=== PATIENT | female | born 1965 | race Two or more races ===

== ENCOUNTER 2024-05-13 08:28 | Inpatient (IN) | payer MEDICAID, SELFPAY ==
[2024-05-13] VITALS (11 sets, daily range): BP systolic 111–152; BP diastolic 67–78; PULSE 89–135; RESP 13–98; TEMP 36.1–38.1; O2SAT 95–99; BMI 23.6
--- NOTE | 2024-05-13 | XR_ITS ---
Examinations: MRI Brain without intravenous contrast. MRA brain without intravenous contrast. MRA carotids without intravenous contrast 3-D vascular reconstructions Date and time of exam: May 13, 2024 1545 hrs. Indications: Stroke alert, onset focal neurologic deficit, left facial numbness left-sided body weakness beginning 12:00 AM this morning Technique: Multiple axial and sagittal images of the brain have been obtained MRA brain carotid images without contrast obtained, including 3-D postprocessing, vascular maximum intensity projection images Findings: Sell[place] is not enlarged. The optic chiasm and infundibular stalk are not remarkable. Prepontine and interpeduncular cisterns are not enlarged. No localized enlargement of the medulla or rose. Fourth ventricle and cerebellar tonsils normal in position. Subacute hemorrhage is not seen. Fourth ventricle is midline. Mass in the cerebellopontine angle region is not evident. 7th and 8th nerve complexes exhibits symmetry. Globes are symmetrical with no retro-orbital mass. Increased white matter signal evident in the right thalamus Diffusion-weighted images demonstrate 9 mm focus restricted diffusion in the right thalamus Mass-effect upon the ventricular system is not identified. MRA carotid images no carotid significant stenoses. MRA brain images 90% stenosis left posterior cerebral artery P2 segment Impression: 9 mm acute right thalamic infarct 90% stenosis left posterior cerebral artery P2 segment
--- NOTE | 2024-05-13 08:44 | XR_ITS ---
Examination: CT brain head without contrast. 2-D sagittal coronal reconstructions Date and time of exam:May 13, 2024 0849 hrs. Indications: Stroke alert, onset focal neurologic deficit beginning midnight, left facial numbness left body weakness CTDI: vol (mGy):47.6 DLP: (mGycm):886 Technique: Multiple CT axial sections of the brain have been obtained, 5 mm slice thickness. Contrast has not been administered. 2-D sagittal, coronal reconstructions have been obtained Low dose protocols were performed. One or more of the following dose reduction techniques were used; automated exposure control, adjustment of the mA and/or KV according to patient size, use of iterative reconstruction technique. Findings: No significant ventricular enlargement. Small old infarct right caudate nucleus Intra-axial or extra-axial hemorrhage density is not seen. No mass effect or midline shift Basal cisterns are not remarkable. Fourth ventricle is midline. Cranial vault intact. Impression: Negative for acute hemorrhage, mass effect or midline shift
--- NOTE | 2024-05-13 08:44 | EKG_ITS ---
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
--- NOTE | 2024-05-13 08:44 | XR_ITS ---
Examination: CTA carotids with intravenous contrast CTA brain, head with intravenous contrast. 2-D sagittal, coronal reconstructions. 3-D reconstructions. Exam date and time: May 13, 2024 0854 hrs. Indications: Onset left-sided facial weakness and body weakness beginning midnight, stroke alert, onset focal neurologic deficit today CTDI: vol (mGy) 15.6 DLP: (mGycm) 404 Technique: Multiple CTA axial brain, head carotid images post intravenous contrast injection 75 cc, Isovue-370. 2-D sagittal, coronal reconstructions. 3-D reconstructions, 3-D post processing including vascular maximum intensity projection images. Low dose protocols were performed. One or more of the following dose reduction techniques were used; automated exposure control, adjustment of the mA and/or KV according to patient size, use of iterative reconstruction technique. Findings: No significant common carotid carotid bifurcation or internal carotid artery stenoses Dominant left vertebral artery with no critical stenoses Intracranial vertebral arteries basilar artery posterior cerebral branches No large vessel occlusions M1 segments middle cerebral arteries middle cerebral artery trifurcation vessels anterior cerebral arteries fill with no thrombus or occlusions Impression: No significant neck arterial stenoses No cerebral large vessel arterial occlusions or thrombus
--- NOTE | 2024-05-13 08:45 | PC.NURSE ---
pt taken to CT.
--- NOTE | 2024-05-13 09:00 | PC.NURSE ---
pt from home with c/o left sided weakness. per pt symptoms started at midnight, states symptoms started with a cramp in the left leg that did not go away, then began to feel weakness in the left arm and leg along with numbness to the left face. pt without further complaints at this time. orders received and initiated. call light is within reach. at bedside. plan of care ongoing.
[2024-05-13 09:03] LABS: Basophils % (Auto) 0 % (0-2.5); Eosinophils # (Auto) 0.1 Thou/mm3 (0.0-0.5); Eosinophils % (Auto) 1 % (0-10); Hematocrit 45.4 % (36.0-46.0); Hemoglobin 15.3 g/dL (12.0-16.0); Immature Granulocytes % (Auto) 1 % (0-0); Immature Granulocytes Auto 0.14 Thou/mm3 (0.00-0.00); Lymphocytes # (Auto) 1.8 Thou/mm3 (1.0-4.8); Lymphocytes % (Auto) 15 % (10-50); Mean Corpuscular HGB Conc 33.7 g/dl (31.0-37.0); Mean Corpuscular Hemoglobin 27.1 pg (25.0-35.0); Mean Corpuscular Volume 80 fL (80-100); Monocytes # (Auto) 0.7 Thou/mm3 (0.0-0.8); Monocytes % (Auto) 5 % (0-12); Neutrophils # (Auto) 9.8 Thou/mm3 (1.8-7.7); Neutrophils % (Auto) 78 % (37-80); Nucleated Red Blood Cell % 0 /100 WBC (0); Platelet Count 531 Thou/mm3 (140-440); RDW Standard Deviation 36.5 fL (36.4-46.3); Red Blood Count 5.65 Miln/mm3 (4.00-5.20); White Blood Count 12.5 Thou/mm3 (3.6-11.0)
[2024-05-13 09:28] LABS: HCG Titer if Positive Negative
[2024-05-13 09:34] LABS: Alanine Aminotransferase 12 U/L (10-49); Albumin, Serum 4.8 gm/dL (3.5-5.0); Albumin/Globulin Ratio 1.6 (1.2-2.2); Alcohol, Blood Medical < 3.0 mg/dL (0-10.0); Alkaline Phosphatase 68 U/L (46-116); Anion Gap 9 (7-16); Aspartate Amino Transferase < 8 U/L (0-34); BUN/Creatinine Ratio 27 Ratio (12-20); Bilirubin,Total 0.7 mg/dL (0.3-1.2); Blood Urea Nitrogen 16 mg/dL (9-23); Calcium 9.7 mg/dL (8.3-10.6); Calcium (Corrected) 9.7 mg/dL (8.5-10.1); Chloride 98 mMol/L (98-107); Creatinine (Component) 0.6 mg/dL (0.6-1.3); Estimated Creatinine Clearance 88.3 mL/min (>60); Glucose 323 mg/dL (74-106); Magnesium 1.8 mg/dL (1.6-2.6); Osmolality,Calculated 281 (275-295); Sodium 134 mMol/L (136-145); Total Protein 7.8 gm/dL (5.7-8.2); Troponin I < 0.002 ng/mL (0.0-0.045); eGFR > 60 See Note
--- NOTE | 2024-05-13 09:34 | PD.TNEURO ---
Tele Neuro Consultation Consultation Date 05/13/24 Most Recent Vital Signs Last Vital Signs Temp 97.9 F 05/13/24 08:42 Pulse 110 H 05/13/24 09:15 Resp 19 05/13/24 09:02 BP 152/67 H 05/13/24 08:42 Pulse Ox 99 05/13/24 08:42 O2 Del Method Room Air 05/13/24 08:42 Consultation Narrative [facility] Tele[facility]rology [facility] Patient Name: Sayda Lemons Date of : 1965 Identification Number: Date of Service: 05/13/2024 08:44:37 Diagnosis: ? I63.89 - Cerebrovascular accident (CVA) due to other mechanism ([facility]) Impression: ? Pt with a h/o DM presents with left sided weakness. NIHSS =2. Righ hemispheric stroke suspected. Out of the thrombolytic window and no LVO on imaging reivew. Recommend admission, TTE, telemetry, MRI brain w/o, dual antiplatelets as outlined below. Fasting lipids. PT/OT/Speech. Our recommendations are outlined below. Recommendations: ? Stroke/Telemetry Floor ? Neuro Checks ? Bedside Swallow Eval ? DVT Prophylaxis ? Euglycemia and Avoid Hyperthermia (PRN Acetaminophen) ? Bolus with Clopidogrel 300 mg bolus x1 and initiate dual antiplatelet therapy with Aspirin 81 mg daily and Clopidogrel 75 mg daily ? Antihypertensives PRN if Blood pressure is greater than 220/120 or there is a concern for End organ damage/contraindications for permissive HTN. If blood pressure is greater than 220/120 give labetalol PO or IV or Vasotec IV with a goal of 15% reduction in BP during the first 24 hours. Sign Out: ? Discussed with Emergency Department Provider Advanced Imaging: CTA Head and Neck Completed. LVO:No Patient in not a candidate for HUNTER Metrics: Last Known Well: 05/13/2024 00:00:00 Dispatch Time: 05/13/2024 08:44:37 Arrival Time: 05/13/2024 08:28:00 Initial Response Time: 05/13/2024 08:52:16 Symptoms: left sided weakness. Initial patient interaction: 05/13/2024 09:13:22 NIHSS Assessment Completed: 05/13/2024 09:22:10 Patient is not a candidate for Thrombolytic. Thrombolytic Medical Decision: 05/13/2024 09:22:20 Patient was not deemed candidate for Thrombolytic because of following reasons: LKW outside 4.[address] head showed no acute hemorrhage or acute core infarct. I personally Reviewed the CT Head and it Showed Primary Provider Notified of Diagnostic Impression and Management Plan on: 05/13/2024 09:33:28 History of Present Illness: Patient is a 59 year old Female. Patient was brought by private transportation with symptoms of left sided weakness. The patient has a h/o DM and presents for left sided weakness. She relates left arm and leg weakness noted onset around midnight and this persists. She had cramping of the left leg from midnight - 4 a.m. She previously has had cramps but they did not involve weakness like this. She denies headaches. Denies vision or speech changes. She noted some left facial numbness as well. Past Medical History: ? Diabetes Mellitus ? There is no history of Hypertension ? There is no history of Hyperlipidemia ? There is no history of Atrial Fibrillation ? There is no history of Coronary Artery Disease ? There is no history of Stroke Medications: No Anticoagulant use No Antiplatelet use Reviewed EMR for current medications Allergies: Reviewed Social History: Smoking: No Family History: There is no family history of premature cerebrovascular disease pertinent to this consultation ROS : 14 Points Review of Systems was performed and was negative except mentioned in HPI. Past Surgical History: There Is No Surgical History Contributory To Today?s Visit Examination: BP(135/69), Pulse(113), Blood Glucose(320) 1A: Level of Consciousness - Alert; keenly responsive + 0 1B: Ask Month and Age - Both Questions Right + 0 1C: Blink Eyes & Squeeze Hands - Performs Both Tasks + 0 2: Test Horizontal Extraocular Movements - Normal + 0 3: Test Visual Muñoz - No Visual Loss + 0 4: Test Facial Palsy (Use Grimace if Obtunded) - Normal symmetry + 0 5A: Test Left Arm Motor Drift - Drift, but doesn't hit bed + 1 5B: Test Right Arm Motor Drift - No Drift for 10 Seconds + 0 6A: Test Left Leg Motor Drift - Drift, but doesn't hit bed + 1 6B: Test Right Leg Motor Drift - No Drift for 5 Seconds + 0 7: Test Limb Ataxia (FNF/Heel-Cruz) - No Ataxia + 0 8: Test Sensation - Normal; No sensory loss + 0 9: Test Language/Aphasia - Normal; No aphasia + 0 10: Test Dysarthria - Normal + 0 11: Test Extinction/Inattention - No abnormality + 0 NIHSS Score: 2 Pre-Morbid Modified [place] Scale: 0 Points = No symptoms at all Spoke with : Dr. Jones This consult was conducted in real time using interactive audio and video technology. Patient was informed of the technology being used for this visit and agreed to proceed. Patient located in hospital and provider located at home/office setting. Patient is being evaluated for possible acute neurologic impairment and high probability of imminent or life-threatening deterioration. I spent total of 35 minutes providing care to this patient, including time for face to face visit via telemedicine, review of medical records, imaging studies and discussion of findings with providers, the patient and/or family. Dr Savita [facility] For Inpatient follow-up with [facility] physician please call [facility] at . As we are not an outpatient service for any post hospital discharge needs please contact the hospital for assistance. If you have any questions for the [facility] physicians or need to reconsult for clinical or diagnostic changes please contact us via [facility] at .
[2024-05-13 09:36] LABS: Collection Type, Urine Clean Catch
[2024-05-13] MEDS: CLOPIDOGREL BISULFATE 75 MG TABLET 300 MG PO (09:39)
[2024-05-13] MEDS: ASPIRIN EC 81 MG TABEC PO (09:39)
[2024-05-13] MEDS: ONDANSETRON INJ 2 MG/ML INJ 2 ML 4 MG IV (09:40)
[2024-05-13 10:02] LABS: Partial Thromboplastin Time 25.6 Seconds (22.0-36.0); Prothrombin Time 10.5 Seconds (9.0-12.2)
[2024-05-13 10:09] LABS: Bilirubin,Urine Negative (Negative); Blood,Urine Negative (Negative); Budding Yeast,Urine Present; Clarity,Urine Clear (Clear/Hazy); Color,Urine Lt-Yellow (Lt Yel-Yel); Glucose, Urine 4+ (Negative); Ketones,Urine 2+ (Negative); Leukocyte Esterase,Urine Negative (Negative); Nitrite,Urine Negative (Negative); PH,Urine 6.5 (5.0-7.0); Protein,Urine Trace (Neg - Trace); RBC,Urine 1 /hpf (0-3); Squamous Epithelial Cell,Urine < 1 /hpf (0-5); Urobilinogen,Urine Negative mg/dL (0.0-1.0); WBC,Urine < 1 /hpf (0-5)
--- NOTE | 2024-05-13 10:12 | EDNOTE_ITS ---
Neuro Symptoms Deficit-RME/HPI General Chief Complaint: Neuro Symptoms/Deficit Stated Complaint: L ARM & LEG WEAKNESS; L FACIAL NUMBNESS Time Seen by Provider: 05/13/24 08:33 Arrival date/time: 05/13/24 08:28 RME / HPI RME / HPI Narrative: DR. JONES MAIN ED EVALUATION: 59 year old female presents to the Emergency Department with complaint of left sided weakness since 12 AM last night. Symptoms are moderate. No other symptoms reported at this time. PMHx: Left kidney stones 6-7 years ago and removed by Dr. More, DM 2 takes metformin 1,000 mg PO BID, and a tubal ligation surgery. Social Hx: No tobacco, alcohol, or substance use. Related Data Home Medications ?Medication ?Instructions ?Recorded ?Confirmed metformin 1,000 mg tablet 1,000 mg PO BID Diabetes 06/17/17 05/13/24 glyburide 2.5 mg tablet 5 mg PO BID 11/15/18 05/13/24 ertugliflozin 15 mg tablet 15 mg PO 1XD 05/13/24 05/13/24 (Steglatro) Allergies Allergy/AdvReac Type Severity Reaction Status Date / Time No Known Allergies Allergy Verified 05/13/24 08:36 Review of Systems Review of Systems Systems Reviewed: All systems reviewed, normal except as documented Narrative Review of Systems: GEN: No fever, no chills, no weight loss EYES: No discharge, no visual changes, no pain HEENT: No ear pain, no congestion, no sore throat PULM: No shortness of breath, no cough, no congestion CV: No chest pain, no dyspnea on exertion, no palpitations GI: No nausea, no vomiting, no diarrhea, no pain, no constipation : No frequency, no urgency and no dysuria MUSC/SKEL: No joint pain, no back pain SKIN: No rash PSYCH: No hallucinations, no depression HEME/LYMPH: No easy bleeding or bruising tendencies NEURO: + left sided weakness , no headache Past Medical History Past Medical History GENITOURINARY: Positive Genitourinary Disorders and Kidney Stones REPRODUCTIVE: Positive Previous Pregnancies (X5) ENDOCRINE: Positive Endocrine Disorders and Diabetes Mellitus Type 2 (TAKES MED) OTHER HISTORY: Positive Chicken Pox and Measles Family History FAMILY HISTORY: Positive Family Cancer (MOTHER (SKIN)) Surgical History SURGICAL: Positive Tubal Ligation Social History SMOKING STATUS: Never smoker SUBSTANCE USE: does not use ALCOHOL: Never Travel History EBOLA RISK: No ED Exam Narrative Physical exam: GENERAL APPEARANCE: alert and oriented x 4, well-developed, well-nourished VITALS: All vitals were reviewed and the pulse ox is 96% on room air, which is normal according to my interpretation. HEENT: Normocephalic, atraumatic; pupils equal, round, reactive to light; EOMI; mucous membranes pink, moist; oropharynx clear NECK: Supple LUNGS: CTABL; no wheezes, no rales, no rhonchi HEART: Regular rate, regular rhythm; normal S1, S2; no murmurs ABDOMEN: non distended; normal BS; soft, no tenderness, no guarding, no rebound; no masses, no organomegaly, no hernia BACK: no CVA tenderness EXTREMITIES: atraumatic; no edema NEUROLOGIC: awake; alert and oriented x4; + left sided weakness PSYCHIATRIC: appropriate mood and affect SKIN: warm, dry, normal color; no rashes Course Course Course Narrative: 0843: Stroke alert initiated. Orders made at this time are congruent stroke protocol. Quality Measures none Orders Category Date Time Status Bedside Blood Glucose NOW Care 05/13/24 08:44 Completed [employer] Supervisor NOW Care 05/13/24 08:44 Active Continuous Pulse Oximetry NOW Care 05/13/24 08:44 Completed EKG (ED ONLY) *Do not use* NOW Care 05/13/24 08:44 Completed In and Out Catheter NEEDED Care 05/13/24 08:44 Active Insert IV NOW Care 05/13/24 08:44 Active NIH Stroke Scale now Care 05/13/24 08:44 Completed NPO NOW Care 05/13/24 08:44 Active Nurse Swallow Screen x1 Care 05/13/24 08:44 Active Consult to Neurology / Tele-Neurology Routine Cons 05/13/24 08:[address] angio stroke protocol Stat Exams 05/13/24 08:[address] stroke protocol Stat Exams 05/13/24 08:44 Completed EKG (ED Only) Stat Exams 05/13/24 08:44 Draft Alcohol, Blood Medical Stat Lab 05/13/24 08:55 Completed CBC Stat Lab 05/13/24 08:55 Completed Comprehensive Metabolic Panel Stat Lab 05/13/24 08:55 Completed Drug Screen,Urine Stat Lab 05/13/24 09:31 Completed HCG Titer if Positive Stat Lab 05/13/24 08:55 Completed Magnesium Stat Lab 05/13/24 08:55 Completed Partial Thromboplastin Time Stat Lab 05/13/24 08:55 Completed Prothrombin Time with INR Stat Lab 05/13/24 08:55 Completed Troponin I Stat Lab 05/13/24 08:55 Completed Urinalysis Stat Lab 05/13/24 09:31 Completed Urine Culture Stat Lab 05/13/24 09:30 Received Aspirin [Ecotrin] Med 05/13/24 09:32 Discontinued 81 mg PO X1 ONE Clopidogrel [Plavix] Med 05/13/24 09:32 Discontinued 300 mg PO X1 ONE Ondansetron Inj [Zofran Inj] Med 05/13/24 08:44 Active 4 mg IV Q4HR PRN Oxygen Delivery NOW RT 05/13/24 08:44 Active Vital Signs Vital signs: Vital Signs Temperature 97.9 F 05/13/24 08:42 Pulse Rate 135 H 05/13/24 08:42 Respiratory Rate 17 05/13/24 08:42 Blood Pressure 152/67 H 05/13/24 08:42 Pulse Oximetry (%) 99 05/13/24 08:42 Oxygen Delivery Method Room Air 05/13/24 08:42 Neuro Symptoms / Deficit MDM Narrative MDM Narrative:: IChloe am scribing for and in the presence of Dr. Jones. Patient data External records reviewed:: [facility] previous records (Reviewed last ED visit dated 09/25/20, discharged with the following: Abdominal pain) Clinical information provided by:: patient Social determinants that could affect healthcare access:: none Patient has the following chronic illnesses:: Left kidney stones 6-7 years ago and removed by Dr. More, DM 2 takes metformin 1,000 mg PO BID, and a tubal ligation surgery How is presenting disease/condition affected by chronic disease/condition?: uneffected by Evaluation data The following diagnostics were reviewed and interpreted by me:: lab results, radiology exam(s) and EKG tracing(s) (EKG done at 0912 hours: sinus tachycardia, rate 111, QTc 444,) Lab and/or radiology exams considered but not ordered:: none Interpretation Summary: Procedure(s): CT angio stroke protocol Accession Number(s): [id number] cc: Renato Peck MD; Anna Jones MD~ Examination: CTA carotids with intravenous contrast CTA brain, head with intravenous contrast. 2-D sagittal, coronal reconstructions. 3-D reconstructions. Exam date and time: May 13, 2024 0854 hrs. Indications: Onset left-sided facial weakness and body weakness beginning midnight, stroke alert, onset focal neurologic deficit today CTDI: vol (mGy) 15.6 DLP: (mGycm) 404 Technique: Multiple CTA axial brain, head carotid images post intravenous contrast injection 75 cc, Isovue-370. 2-D sagittal, coronal reconstructions. 3-D reconstructions, 3-D post processing including vascular maximum intensity projection images. Low dose protocols were performed. One or more of the following dose reduction techniques were used; automated exposure control, adjustment of the mA and/or KV according to patient size, use of iterative reconstruction technique. Findings: No significant common carotid carotid bifurcation or internal carotid artery stenoses Dominant left vertebral artery with no critical stenoses Intracranial vertebral arteries basilar artery posterior cerebral branches No large vessel occlusions M1 segments middle cerebral arteries middle cerebral artery trifurcation vessels anterior cerebral arteries fill with no thrombus or occlusions Impression: No significant neck arterial stenoses No cerebral large vessel arterial occlusions or thrombus Dictated By: Renato Peck MD Procedure(s): CT stroke protocol Accession Number(s): [id number] cc: Renato Peck MD; Anna Jones MD~ Examination: CT brain head without contrast. 2-D sagittal coronal reconstructions Date and time of exam:May 13, 2024 0849 hrs. Indications: Stroke alert, onset focal neurologic deficit beginning midnight, left facial numbness left body weakness CTDI: vol (mGy):47.6 DLP: (mGycm):886 Technique: Multiple CT axial sections of the brain have been obtained, 5 mm slice thickness. Contrast has not been administered. 2-D sagittal, coronal reconstructions have been obtained Low dose protocols were performed. One or more of the following dose reduction techniques were used; automated exposure control, adjustment of the mA and/or KV according to patient size, use of iterative reconstruction technique. Findings: No significant ventricular enlargement. Small old infarct right caudate nucleus Intra-axial or extra-axial hemorrhage density is not seen. No mass effect or midline shift Basal cisterns are not remarkable. Fourth ventricle is midline. Cranial vault intact. Impression: Negative for acute hemorrhage, mass effect or midline shift Dictated By: Renato Peck MD Medications / Prescriptions Medications or Prescriptions considered but not ordered:: Out of the thrombolytic window. Medication administrations:: Medication Administration History Acetaminophen (Acetaminophen 325 Mg Tablet) 650 mg PO Q6H PRN PRN Reason: Fever >100.4 or pain Stop: 06/12/24 13:43 Last Admin: 05/13/24 15:30 Dose: 650 mg Documented By: VIKAS Aspirin (Aspirin Ec 81 Mg Tabec) 81 mg PO QDAY GEN Stop: 06/13/24 08:59 Clopidogrel Bisulfate (Clopidogrel Bisulfate 75 Mg Tablet) 75 mg PO QDAY [facility] Stop: 06/13/24 08:59 Dextrose (Dextrose 50%-Water Inj 50 Ml Syringe) 25 ml IV Q15MIN PRN PRN Reason: BG 50-70 responsive npo pt Stop: 06/12/24 13:43 Dextrose (Dextrose 50%-Water Inj 50 Ml Syringe) 50 ml IV Q15MIN PRN PRN Reason: BG <50 OR BG <70 & pt unresponsive Stop: 06/12/24 13:43 Glucagon (Glucagon Inj 1 Mg Vial) 1 mg IM Q15MIN PRN PRN Reason: BG <70, and no IV access Sodium Chloride (Ns) 1,000 mls @ 999 mls/hr IV .Q1H1M ONE Stop: 05/13/24 16:25 Last Admin: 05/13/24 15:31 Dose: 999 mls/hr Documented By: VG Insulin Glargine (Insulin Glargine (Lantus) 5 Unit/0.05 Ml (Per 5 Units)) 12 unit SC QDAY GEN Stop: 06/13/24 08:59 Insulin Human Lispro (Insulin Lispro (Admelog) 1 Unit/0.01 Ml Unit) 0 unit SC AC GEN; Protocol Stop: 06/12/24 16:59 Ondansetron HCl (Ondansetron Inj 2 Mg/Ml Inj 2 Ml) 4 mg IV Q4HR PRN PRN Reason: NAUSEA OR VOMITING Stop: 06/12/24 08:43 Last Admin: 05/13/24 09:40 Dose: 4 mg Documented By: VG Discontinued Medications Aspirin (Aspirin Ec 81 Mg Tabec) 81 mg PO X1 ONE Stop: 05/13/24 09:33 Last Admin: 05/13/24 09:39 Dose: 81 mg Documented By: VG Clopidogrel Bisulfate (Clopidogrel Bisulfate 75 Mg Tablet) 300 mg PO X1 ONE Stop: 05/13/24 09:33 Last Admin: 05/13/24 09:39 Dose: 300 mg Documented By: VIKAS Insulin Human Lispro (Insulin Lispro (Admelog) 1 Unit/0.01 Ml Unit) 0 unit SC AC GEN; Protocol Stop: 06/12/24 16:59 Insulin Human Lispro (Insulin Lispro (Admelog) 1 Unit/0.01 Ml Unit) 0 unit SC AC GEN; Protocol Stop: 06/12/24 16:59 Insulin Human Lispro (Insulin Lispro (Admelog) 1 Unit/0.01 Ml Unit) 0 unit SC AC GEN; Protocol Stop: 06/12/24 16:59 see above Consultations Consultation(s) initiated? (list below): Yes Consultation #1 (Physician, Specialty, Details): Neuro consulted, Savita Castro, see their note. Following recommendations. Out of the thrombolytic window and recommends admission. Time: 09:30 Consultation #2 (Physician, Specialty, Details): Discussed test HPI, PMHx, lab, radiology results and/or management with hospitalist. Will admit for further evaluation and management. Accepts patient for admission. Time: 10:00 Diagnosis Neuro Differential Diagnosis: subarachnoid hemorrhage, cerebrovascular accident and transient cerebral ischemia Most likely diagnosis given after review of the tests above:: As noted below. Admission Indicated Admission indicated?: indicated Admission Request Was there a request for admission?: Yes Admission Attestation Admission request attestation: Discussed case with [] from Hospitalist service regarding admission. Discussed patients ED course, exam findings, labs, and radiology results. The Hospitalist [agrees,declines] to accept the patient for admission. Disposition Plan Disposition Plan: Admit Discharge Plan Plan Patient Disposition: Admit Acute Care w/in Hospital
[2024-05-13 10:17] LABS: Amphetamine/Methamp Scrn,U Negative (Negative); Barbiturate Screen,Urine Negative (Negative); Benzodiazepines Screen,Urine Negative (Negative); Benzoylecgonine Screen, Ur Negative (Negative); Fentanyl Screen,Urine Negative (Negative); Opiate Screen,Urine Negative (Negative); THC Screen,Urine Negative (Negative)
--- NOTE | 2024-05-13 13:46 | ECHO_ITS ---
Transthoracic Echo Report Ht (in): 64 Wt (lb): 142 Exam Location: Port[facility] Status: Inpatient Venture Capitalist: Taylor Mcmillan Indications: Procedure Performed: BP: 117 / 61 HR: 88 Rhythm: Sinus Technical Quality: Fair Contrast: Agitated Saline Total Dose (mL): MEASUREMENTS (Male / Female) Normal Values 2D ECHO LV Diastolic Diameter PLAX 3.7 cm 4.2 - 5.9 / 3.9 - 5.3 cm LV Systolic Diameter PLAX 2.6 cm IVS Diastolic Thickness 0.9 cm 0.6 - 1.0 / 0.6 - 0.9 cm LVPW Diastolic Thickness 0.9 cm 0.6 - 1.0 / 0.6 - 0.9 cm LV Relative Wall Thickness 0.5 LVOT Diameter 1.9 cm LA Volume Index 10.9 cm?/m? 16 - 28 cm?/m? Ascending Aorta Diameter 3.0 cm M-MODE Aortic Root Diameter MM 2.6 cm LA Systolic Diameter MM 2.9 cm LA Ao Ratio MM 1.1 AV Cusp Separation MM 1.6 cm DOPPLER AV Peak Velocity 128.0 cm/s AV Peak Gradient 6.6 mmHg AV Mean Gradient 4.0 mmHg AV Velocity Time Integral 17.6 cm LVOT Peak Velocity 104.0 cm/s LVOT Peak Gradient 4.3 mmHg LVOT Velocity Time Integral 20.2 cm LVOT Cardiac Index 2938.7 cm?/min?m? AV Area Cont Eq vti 3.3 cm? AV Area Cont Eq pk 2.3 cm? MV Peak Velocity 118.0 cm/s MV Peak Gradient 5.6 mmHg MV Mean Velocity 85.3 cm/s MV Mean Gradient 3.0 mmHg MV Area PHT 6.3 cm? Mitral E Point Velocity 66.0 cm/s Mitral A Point Velocity 106.0 cm/s Mitral E to A Ratio 0.6 LV E' Lateral Velocity 10.1 cm/s Mitral E to LV E' Lateral Ratio 6.5 LV E' Septal Velocity 6.4 cm/s Mitral E to LV E' Septal Ratio 10.3 TR Peak Velocity 204.0 cm/s TR Peak Gradient 16.6 mmHg FINDINGS Left Ventricle Normal left ventricular size, wall thickness, systolic function with no obvious regional wall motion abnormalities. The ejection fraction is visually estimated at 60-65%. Right Ventricle The right ventricle is normal in size and systolic function. The estimated right ventricular systoli c pressure, 22mmHg. RAP 5. Left Atrium The left atrium is normal by two-dimensional, color flow and Doppler imaging with no structural abnormalities, no thrombus formation present. Right Atrium The right atrium is normal by two-dimensional imaging, color flow and Doppler imaging with no struct ural abnormalities, no thrombus formation present. Atrial Septum The interatrial septum appears normal with no evidence of a shunt. Aorta The aorta is normal by two-dimensional, color flow and Doppler interrogation. Mitral Valve The mitral valve is normal by two-dimensional, color flow and Doppler interrogation. There is no sig nificant mitral valve regurgitation. Aortic Valve The aortic valve is trileaflet and normal by two-dimensional, color flow and Doppler interrogation. There is no significant aortic valve regurgitation. Tricuspid Valve The tricuspid valve is normal by two-dimensional, color flow and Doppler interrogation. There is tra ce tricuspid valve regurgitation. Pulmonic Valve There is no significant pulmonic valve regurgitation. Vessels The pulmonary artery appears normal. The inferior vena cava pulmonary and hepatic veins appear riley l. Pericardium The pericardium is normal by two-dimensional imaging. There is no significant pericardial effusion. CONCLUSIONS Negative bubble study. No evidence of PFO or ASD Normal LV size and function. Estimated EF 60-65% Normal RV size and function. Trace TR. Bridgette Thorne (Electronically Signed) Final Date: 15 May 2024 13:21
--- NOTE | 2024-05-13 14:24 | PD.RESHP ---
Documentation for date of: 05/13/24 HPI History of Present Illness Chief complaint: Left sided weakness History of present illness: 59 y/o F with PMHx significant for eir-gkzwmal-qquubjvzy diabetes presented to the ED from home with chief complaint of left-sided weakness. Patient first noted weakness in her left arm and leg last night, after waking up the next morning symptoms were unchanged prompting visit to ED. Patient has no history of previous symptoms in the past. Patient notes her left arm, leg, face feels slightly numb. Patient denies headache, chest pain, fever, chills, shortness of breath, nausea, vomiting. ED COURSE: Labs significant for: WBCs 12.5, U tox negative. Imaging significant for: Head CT negative. CTA head/neck showed no large vessel obstruction or stenosis. Patient received aspirin and loading dose Plavix in the ED. Teleneuro consulted, recommended admission and workup for stroke. PMH: Diabetes. PSH: Procedure to remove kidney stone. SH: Denies tobacco use or illicit drug use. Endorses social drinking. Allergies:?NKDA Medications: Metformin, glipizide Review of Systems Review of Systems Systems Reviewed: All systems reviewed, normal except as documented Past Medical History Past Medical History Comments PMH COMMENT: PMH: Diabetes. PSH: Procedure to remove kidney stone. SH: Denies tobacco use or illicit drug use. Endorses social drinking. Allergies:?NKDA Medications: Metformin, glipizide Exam Vital Signs Temp Pulse Resp BP Pulse Ox O2 Del Method 98.4 F 109 H 20 114/76 98 Room Air 05/13/24 12:00 05/13/24 12:05/13/24 12:05/13/24 12:05/13/24 12:05/13/24 12:00 Narrative Exam PE: Gen: Well-developed and well-nourished. HEENT: NCAT, PERRLA, EOMI, MMM, anicteric conjunctivae. CVS: normal S1 and S2. RRR. No M/R/G. Resp: CTA B/L. No rhonchi, rales, crackles or wheezing. Abd: soft, non-tender, non-distended. BS+ in all 4 quadrants. MSK: Good ROM in BUE & BLE. No edema or rash. Neuro: CN II-XII grossly intact. Strength 5/5 in right upper and lower extremities.. Alert and oriented x3. Strength 4/5 in left upper and lower extremities. Left arm drift. Decree sensation to light touch on left face, left arm, left leg. Left-sided ataxia. Psych: appropriate mood and affect. Results: Labs 05/13/24 08:55 05/13/24 08:55 Labs: Short CBC 05/13/24 Range/Units 08:55 WBC 12.5 H (3.6-11.0) Thou/mm3 Hgb 15.3 (12.0-16.0) g/dL Hct 45.4 (36.0-46.0) % Plt Count 531 H (140-440) Thou/mm3 BMP 05/13/24 08:55 Sodium 134 L Potassium 4.0 Chloride 98 Carbon Dioxide 27.0 BUN 16 Creatinine 0.6 Glucose 323 H Calcium 9.7 Cardiac Enzymes 05/13/24 Range/Units 08:55 Troponin I < 0.002 (0.0-0.045) ng/mL Liver Function 05/13/24 Range/Units 08:55 Total Bilirubin 0.7 (0.3-1.2) mg/dL AST < 8 (0-34) U/L ALT 12 (10-49) U/L Alkaline Phosphatase 68 (46-116) U/L Albumin 4.8 (3.5-5.0) gm/dL Urine 05/13/24 Range/Units 09:31 Urine Color Lt-Yellow (Lt Yel-Yel) Urine Clarity Clear (Clear/Hazy) Urine pH 6.5 (5.0-7.0) Ur Specific [place] 1.010 (1.001-1.035) Urine Protein Trace (Neg - Trace) Urine Glucose (UA) 4+ A (Negative) Quality Measures Quality Measures VTE prophylaxis Medications Home Medications and Allergies Home Medications ?Medication ?Instructions ?Recorded ?Confirmed ?Type metformin 1,000 mg tablet 1,000 mg PO BID Diabetes 06/17/17 05/13/24 History glyburide 2.5 mg tablet 5 mg PO BID 11/15/18 05/13/24 History ertugliflozin 15 mg tablet 15 mg PO 1XD 05/13/24 05/13/24 History ([place]) Allergies Allergy/AdvReac Type Severity Reaction Status Date / Time No Known Allergies Allergy Verified 05/13/24 08:36 Visit Medications Acetaminophen (Acetaminophen 325 Mg Tablet) 650 mg PO Q6H PRN PRN Reason: Fever >100.4 or pain Stop: 06/12/24 13:43 Aspirin (Aspirin Ec 81 Mg Tabec) 81 mg PO QDAY GEN Stop: 06/13/24 08:59 Clopidogrel Bisulfate (Clopidogrel Bisulfate 75 Mg Tablet) 75 mg PO QDAY GEN Stop: 06/13/24 08:59 Dextrose (Dextrose 50%-Water Inj 50 Ml Syringe) 25 ml IV Q15MIN PRN PRN Reason: BG 50-70 responsive npo pt Stop: 06/12/24 13:43 Dextrose (Dextrose 50%-Water Inj 50 Ml Syringe) 50 ml IV Q15MIN PRN PRN Reason: BG <50 OR BG <70 & pt unresponsive Stop: 06/12/24 13:43 Glucagon (Glucagon Inj 1 Mg Vial) 1 mg IM Q15MIN PRN PRN Reason: BG <70, and no IV access Insulin Glargine (Insulin Glargine (Lantus) 5 Unit/0.05 Ml (Per 5 Units)) 12 unit SC QDAY GEN Stop: 06/13/24 08:59 Insulin Human Lispro (Insulin Lispro (Admelog) 1 Unit/0.01 Ml Unit) 0 unit SC AC [facility]; Protocol Stop: 06/12/24 16:59 Ondansetron HCl (Ondansetron Inj 2 Mg/Ml Inj 2 Ml) 4 mg IV Q4HR PRN PRN Reason: NAUSEA OR VOMITING Stop: 06/12/24 08:43 Last Admin: 05/13/24 09:40 Dose: 4 mg Discontinued Medications Aspirin (Aspirin Ec 81 Mg Tabec) 81 mg PO X1 ONE Stop: 05/13/24 09:33 Last Admin: 05/13/24 09:39 Dose: 81 mg Clopidogrel Bisulfate (Clopidogrel Bisulfate 75 Mg Tablet) 300 mg PO X1 ONE Stop: 05/13/24 09:33 Last Admin: 05/13/24 09:39 Dose: 300 mg Insulin Human Lispro (Insulin Lispro (Admelog) 1 Unit/0.01 Ml Unit) 0 unit SC AC [facility]; Protocol Stop: 06/12/24 16:59 Insulin Human Lispro (Insulin Lispro (Admelog) 1 Unit/0.01 Ml Unit) 0 unit SC AC GEN; Protocol Stop: 06/12/24 16:59 Insulin Human Lispro (Insulin Lispro (Admelog) 1 Unit/0.01 Ml Unit) 0 unit SC AC [facility]; Protocol Stop: 06/12/24 16:59 Assessment & Plan Plan 59 y/o F with PMHx significant for gzh-dxrcuym-amamwonix diabetes presented to the ED from home with chief complaint of left-sided weakness, admitted for stroke workup. #CVA workup Patient presented with acute onset left-sided weakness/numbness. On exam patient had a clear left-sided weakness, drift, ataxia, decreased sensation to light touch. Head CT negative, CTA head neck unremarkable. Patient received 81 mg aspirin 100 mg Plavix in the ED. Telemetry neuro consulted, recommended admission and workup for stroke. -Telemetry -MRI stroke protocol -Aspirin 81 mg daily -Plavix 75 mg daily -Permissive hypertension -Every 4 hour neurochecks -Echo with bubble study -PT and speech evals -Fasting lipids, A1c, TSH ordered #DM Patient history. No A1c on file. -ISS -Lantus 12 units daily -A1c ordered, follow-up Plan of care discussed with senior resident Dr. Celeste PGY?[address] Ly[address] Pb Frederick MD PGY?1 Senior Resident Attestation: I discussed with and supervised the health information internship physician involved in the care of this patient. I personally saw and examined the patient and discussed the assessment and plan with the entire medicine team, including my attending. I agree with the assessment and plan as documented above. [ 59-year-old female with past medical history of diabetes presenting to the emergency department due to left-sided upper and lower extremity weakness and left-sided facial numbness. Symptoms started yesterday night. Stroke alert in the ED was called. No tPA was given due to out of window. Teleneuro was consulted and I HSS score was 2. CT head and CTA head and neck were negative. Patient blood pressure on arrival was 157/62 with a heart rate of 135. Rest of the vital signs were within normal limits. Labs on arrival showed a WBC of 12.5 with a platelet count of 531, sodium was 134, glucose was 323, UA shows positive for glucose 4+ and ketones 2+. U tox was negative. Patient will be admitted for CVA workup pending MRI brain. Patient was started on Plavix and aspirin. We will put her on insulin sliding scale. A.m. labs were ordered. Neurologist was consulted. We will get this echocardiogram and physical therapy. ] - Patient's care was discussed with my attending physician. Lucas Celeste MD Internal Medicine PGY-3 Attending Provider Attestation/Addendum I attest that I was physically present for the evaluation, physical examination, lab and imaging review of the patient with the residents. I discussed the case with the residents and agree with the findings and plans of care as documented above. Patient is a 59 years old male with past medical history of diabetes presented to the ED with complaint of left-sided weakness. Stated his symptoms started last night but decided to visit the ED this morning when he had persistent weakness of his left arm and leg along with numbness on his left side of the face. On exam patient noted to have weakness on his left upper and lower arm along with diminished sensation on his left side of face upper arm and lower arm. Patient will be admitted for stroke workup. Head CT is negative for acute hemorrhage, mass effect or midline shift. CTA head and neck is negative for any arterial stenosis. Started on aspirin, Plavix and statin. We will obtain brain MRI, echocardiography, neurology consultation. Started patient on insulin regimen for hyperglycemia. Yuli Ly MD
--- NOTE | 2024-05-13 14:30 | PC.NURSE ---
per admitting provider okay for pt to eat, lunch tray provided.
[2024-05-13] MEDS: ACETAMINOPHEN 325 MG TABLET 650 MG PO (15:30)
[2024-05-13] MEDS: SODIUM CHLORIDE 0.9% 1000 ML 1,000 ML 999 ML IV (15:31)
--- NOTE | 2024-05-13 15:34 | PC.NURSE ---
Pt with a temp of 100.6 and noted to be tachycardic in the 120's. Dr. Berger called and notified. Per Dr. Berger, do not call sepsis alert at this time, give tylenol and start liter bolus of NS. Orders initiated.
[2024-05-13] MEDS: INSULIN LISPRO (AdmeLOG) 1 UNIT/0.01 ML UNIT SC ×2 (16:38→21:00)
[2024-05-14] VITALS: BP 131/74; PULSE 86; PULSE 98; RESP 18; TEMP 35.9; O2SAT 96
[2024-05-14 04:00] VITALS: PULSE 95; PULSE 98; RESP 17; TEMP 36.2; O2SAT 96
[2024-05-14 06:00] VITALS: BMI 25.0
[2024-05-14 06:30] LABS: Basophils % (Auto) 0 % (0-2.5); Eosinophils # (Auto) 0.2 Thou/mm3 (0.0-0.5); Eosinophils % (Auto) 3 % (0-10); Hematocrit 37.4 % (36.0-46.0); Hemoglobin 12.5 g/dL (12.0-16.0); Immature Granulocytes % (Auto) 2 % (0-0); Immature Granulocytes Auto 0.13 Thou/mm3 (0.00-0.00); Lymphocytes # (Auto) 2.2 Thou/mm3 (1.0-4.8); Lymphocytes % (Auto) 33 % (10-50); Mean Corpuscular HGB Conc 33.4 g/dl (31.0-37.0); Mean Corpuscular Hemoglobin 27.2 pg (25.0-35.0); Mean Corpuscular Volume 82 fL (80-100); Monocytes # (Auto) 0.8 Thou/mm3 (0.0-0.8); Monocytes % (Auto) 13 % (0-12); Neutrophils # (Auto) 3.3 Thou/mm3 (1.8-7.7); Neutrophils % (Auto) 49 % (37-80); Nucleated Red Blood Cell % 0 /100 WBC (0); Platelet Count 420 Thou/mm3 (140-440); RDW Standard Deviation 38.5 fL (36.4-46.3); Red Blood Count 4.59 Miln/mm3 (4.00-5.20); White Blood Count 6.7 Thou/mm3 (3.6-11.0)
[2024-05-14 06:48] LABS: Partial Thromboplastin Time 25.5 Seconds (22.0-36.0); Prothrombin Time 10.7 Seconds (9.0-12.2)
[2024-05-14 06:55] LABS: Glucose Estimated Average 252 mg/dL (80-131); Hemoglobin A1C 10.4 % Hgb (4.8-6.0)
[2024-05-14 07:03] LABS: Alanine Aminotransferase 10 U/L (10-49); Albumin, Serum 3.8 gm/dL (3.5-5.0); Albumin/Globulin Ratio 1.7 (1.2-2.2); Alkaline Phosphatase 51 U/L (46-116); Anion Gap 6 (7-16); Aspartate Amino Transferase < 8 U/L (0-34); BUN/Creatinine Ratio 22 Ratio (12-20); Bilirubin,Total 0.4 mg/dL (0.3-1.2); Blood Urea Nitrogen 13 mg/dL (9-23); Calcium 8.8 mg/dL (8.3-10.6); Carbon Dioxide 25.9 mMol/L (20.0-31.0); Cardiac Risk Estimate 3.4 RATIO (3.7-5.6); Chloride 104 mMol/L (98-107); Cholesterol 133 mg/dL (132-200); Creatinine (Component) 0.6 mg/dL (0.6-1.3); Estimated Creatinine Clearance 96.9 mL/min (>60); Globulin 2.2 gm/dL (2.3-3.5); Glucose 289 mg/dL (74-106); HDL Cholesterol 39 mg/dL (40-60); LDL Cholesterol,Calculated 67 mg/dL (0-130); Magnesium 1.8 mg/dL (1.6-2.6); Osmolality,Calculated 283 (275-295); Phosphorous 2.7 mg/dL (2.4-5.1); Potassium 4.1 mMol/L (3.4-5.1); Sodium 136 mMol/L (136-145); Thyroid Stimulating Hormone 1.28 uIU/mL (0.55-4.78); Triglycerides 134 mg/dL (30-150); eGFR > 60 See Note
[2024-05-14] MEDS: INSULIN LISPRO (AdmeLOG) 1 UNIT/0.01 ML UNIT SC ×4 (07:04→20:50)
[2024-05-14 08:00] VITALS: BP 97/65; PULSE 100; PULSE 91; RESP 15; TEMP 35.9; O2SAT 92
[2024-05-14] MEDS: ASPIRIN EC 81 MG TABEC PO (08:14)
[2024-05-14] MEDS: CLOPIDOGREL BISULFATE 75 MG TABLET PO (08:14)
[2024-05-14] MEDS: Magnesium Sulfate 2 GM Ivpb 2 GM/50 ML BAG IV (08:14)
[2024-05-14] MEDS: INSULIN GLARGINE (Lantus) 5 UNIT/0.05 ML (PER 5 UNITS) 18 UNIT SC (08:15)
--- NOTE | 2024-05-14 10:45 | PD.RESPRO ---
Documentation for date of: 05/14/24 Subjective Subjective Interval history: Patient was seen and examined at the bedside this morning. Patient reported that she is still have some mild left-sided upper and lower extremity weakness however improved since yesterday. She was explained that she had a stroke at the right thalamus and will continue with aspirin Plavix and statin therapy. We are currently waiting on echocardiogram with bubble study and neurology further recommendations along with PT evaluation. Patient had elevated blood sugars this morning in 300s therefore Lantus was increased to 18 units scheduled and 2 units 3 times daily with meals along with lispro sliding scale resistant. Rest of the labs were unremarkable kidney functions remained stable. A1c is 10.4 therefore patient will be discharged with lisinopril and was explained that she will benefit from continuous glucose monitor. Glyburide will be discontinued upon discharge and will likely continue metformin as kidney functions are stable. Awaiting echocardiogram with bubble study and neurology recommendations. Exam Vital Signs Temp Pulse Resp BP Pulse Ox O2 Del Method 96.7 F L 91 15 97/65 92 L Room Air 05/14/24 08:00 05/14/24 08:00 05/14/24 08:00 05/14/24 08:00 05/14/24 08:00 05/14/24 08:00 Narrative Exam Gen: Well-developed and well-nourished. HEENT: NCAT, PERRLA, EOMI, MMM, anicteric conjunctivae. CVS: normal S1 and S2. RRR. No M/R/G. Resp: CTA B/L. No rhonchi, rales, crackles or wheezing. Abd: soft, non-tender, non-distended. BS+ in all 4 quadrants. MSK: Good ROM in BUE & BLE. No edema or rash. Neuro: CN II-XII grossly intact. Strength 5/5 in right upper and lower extremities.. Alert and oriented x3. Strength 4/5 in left upper and lower extremities. Left arm drift. Decree sensation to light touch on left face, left arm, left leg. Left-sided ataxia. Psych: appropriate mood and affect. Objective Labs 05/14/24 05:55 05/14/24 05:55 Labs: Laboratory Results - last 24 hr 05/14/24 05:55 WBC 6.7 D RBC 4.59 Hgb 12.5 D Hct 37.4 MCV 82 MCH 27.2 MCHC 33.4 RDW Std Deviation 38.5 Plt Count 420 D Neut % (Auto) 49 Lymph % (Auto) 33 [place] % (Auto) 13 H Eos % (Auto) 3 Baso % (Auto) 0 Neut # (Auto) 3.3 Lymph # (Auto) 2.2 [place] # (Auto) 0.8 Eos # (Auto) 0.2 Baso # (Auto) 0.0 Immature Gran # (Auto) 0.13 H Absolute Nucleated RBC 0.00 Immature Gran % 2 H Nucleated RBC % 0 PT 10.7 INR 1.0 APTT 25.5 Sodium 136 Potassium 4.1 Chloride 104 Carbon Dioxide 25.9 Anion Gap 6 L BUN 13 Creatinine 0.6 Estim Creat Clear Calc 96.9 eGFR > 60 BUN/Creatinine Ratio [address] H Glucose [address] Glu mg/dL 252 H Hemoglobin A1c 10.4 H Calculated Osmolality 283 Calcium 8.8 Corrected Calcium 9.0 Phosphorus 2.7 Magnesium 1.8 Total Bilirubin 0.4 AST < 8 ALT 10 Alkaline Phosphatase 51 D Total Protein 6.0 Albumin 3.8 D Globulin 2.2 L Albumin/Globulin Ratio 1.7 Triglycerides 134 Cholesterol 133 LDL Cholesterol, Calc 67 HDL Cholesterol 39 L Cholesterol/HDL Ratio 3.4 L TSH 1.28 Quality Measures Quality Measures VTE prophylaxis Assessment & Plan Assessment Current Active Medications: Generic Name Dose Route Start Last Admin Trade Name Freq PRN Reason Stop Dose Admin Acetaminophen 650 mg 05/13/24 13:44 05/13/24 15:30 Acetaminophen 325 Mg Tablet PO 06/12/24 13:43 650 mg Q6H PRN Administration Fever >100.4 or pain Aspirin 81 mg 05/14/24 09:00 05/14/24 08:14 Aspirin Ec 81 Mg Tabec PO 06/13/24 08:59 81 mg QDAY GEN Administration Atorvastatin Calcium 80 mg 05/14/24 21:00 Atorvastatin Calcium 20 Mg Tablet PO 06/13/24 20:59 HS GEN Clopidogrel Bisulfate 75 mg 05/14/24 09:00 05/14/24 08:14 Clopidogrel Bisulfate 75 Mg Tablet PO 06/13/24 08:59 75 mg QDAY GEN Administration Dextrose 25 ml 05/13/24 13:44 Dextrose 50%-Water Inj 50 Ml Syringe IV 06/12/24 13:43 Q15MIN PRN BG 50-70 responsive npo pt Dextrose 50 ml 05/13/24 13:44 Dextrose 50%-Water Inj 50 Ml Syringe IV 06/12/24 13:43 Q15MIN PRN BG <50 OR BG <70 & pt unresponsive Glucagon 1 mg 05/13/24 13:44 Glucagon Inj 1 Mg Vial IM Q15MIN PRN BG <70, and no IV access Insulin Glargine 18 unit 05/14/24 09:00 05/14/24 08:15 Insulin Glargine (Lantus) 5 Unit/0.05 Ml (Per 5 Units) SC 06/13/24 08:59 18 unit QDAY GEN Administration Insulin Human Lispro 0 unit 05/14/24 07:49 Insulin Lispro (Admelog) 1 Unit/0.01 Ml Unit SC 06/12/24 20:59 [facility] Protocol Insulin Human Lispro 2 unit 05/14/24 11:00 Insulin Lispro (Admelog) 1 Unit/0.01 Ml Unit SC 06/13/24 10:59 T[facility] Ondansetron HCl 4 mg 05/13/24 08:44 05/13/24 09:40 Ondansetron Inj 2 Mg/Ml Inj 2 Ml IV 06/12/24 08:43 4 mg Q4HR PRN Administration NAUSEA OR VOMITING Plan This 59 y/o F with PMHx significant for sji-[place]-vvgygqdfk diabetes presented to the ED from home with chief complaint of left-sided weakness, admitted for stroke workup. 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 On exam patient had a clear left-sided weakness, drift, ataxia, decreased sensation to light touch. Head CT negative, CTA head neck unremarkable. Patient received 81 mg aspirin 100 mg Plavix in the ED. Telemetry neuro consulted, recommended admission and workup for stroke. -LDL 67, triglycerides 134 -Telemetry -MRI stroke confirm 9 mm acute right thalamic infarct And 90% stenosis left posterior cerebral artery P2 segment -Aspirin 81 mg daily -Plavix 75 mg daily and atorvastatin 80 mg at bedtime -Every 4 hour neurochecks -Echo with bubble study pending -PT pending -A1c 10.4 # Non-insulin dependent DM, uncontrolled Patient history. A1c 10.4 -ISS -Lantus increased to 18 units units daily -Started 2 units 3 times daily with meals -Hypoglycemia protocol ?Diabetic education -Will discontinue glyburide and continue metformin along with Tresiba upon discharge -CGM on discharge Patient was seen and discussed with attending physician, Dr.Bishwakarma Dr. Cate MD, PGY 2 Attending Provider Attestation/Addendum I attest that I was physically present for the evaluation, physical examination, lab and imaging review of the patient with the residents. I discussed the case with the residents and agree with the findings and plans of care as documented above. At bedside today, patient states she is feeling much better. Her left-sided weakness has improved significantly. She only has mild weakness on her left arm. Continues to be on antiplatelets and statin. Noted to be hyperglycemic, we will adjust her insulin regimen. Awaiting echocardiography, physical therapy and neurology recommendations. Negrita Ly MD
[2024-05-14] MEDS: INSULIN LISPRO (AdmeLOG) 1 UNIT/0.01 ML UNIT 2 UNIT SC ×2 (11:34→16:44)
[2024-05-14 12:00] VITALS: BP 119/60; PULSE 92; PULSE 94; RESP 18; TEMP 36.2; O2SAT 94
[2024-05-14 16:00] VITALS: BP 118/65; PULSE 92; PULSE 93; RESP 14; TEMP 36.4; O2SAT 94
[2024-05-14 20:00] VITALS: BP 108/70; PULSE 100; PULSE 96; RESP 20; TEMP 36.4; O2SAT 93
[2024-05-14] MEDS: ATORVASTATIN CALCIUM 20 MG TABLET 80 MG PO (20:43)
[2024-05-15] VITALS: BP 124/64; PULSE 86; PULSE 94; RESP 16; TEMP 36.3; O2SAT 95
[2024-05-15 04:00] VITALS: BP 117/61; PULSE 88; PULSE 93; RESP 15; TEMP 36.4; O2SAT 95
[2024-05-15 05:14] LABS: Basophils % (Auto) 0 % (0-2.5); Eosinophils # (Auto) 0.2 Thou/mm3 (0.0-0.5); Eosinophils % (Auto) 2 % (0-10); Hemoglobin 11.9 g/dL (12.0-16.0); Immature Granulocytes % (Auto) 1 % (0-0); Immature Granulocytes Auto 0.09 Thou/mm3 (0.00-0.00); Lymphocytes # (Auto) 3.6 Thou/mm3 (1.0-4.8); Lymphocytes % (Auto) 39 % (10-50); Mean Corpuscular HGB Conc 32.2 g/dl (31.0-37.0); Mean Corpuscular Hemoglobin 26.7 pg (25.0-35.0); Mean Corpuscular Volume 83 fL (80-100); Monocytes % (Auto) 11 % (0-12); Neutrophils # (Auto) 4.3 Thou/mm3 (1.8-7.7); Neutrophils % (Auto) 46 % (37-80); Nucleated Red Blood Cell % 0 /100 WBC (0); Platelet Count 376 Thou/mm3 (140-440); Red Blood Count 4.46 Miln/mm3 (4.00-5.20); White Blood Count 9.2 Thou/mm3 (3.6-11.0)
[2024-05-15 05:25] LABS: Prothrombin Time 10.9 Seconds (9.0-12.2)
[2024-05-15 06:00] VITALS: BMI 25.5
[2024-05-15 06:05] LABS: Alanine Aminotransferase 10 U/L (10-49); Albumin, Serum 3.7 gm/dL (3.5-5.0); Albumin/Globulin Ratio 1.5 (1.2-2.2); Alkaline Phosphatase 48 U/L (46-116); Anion Gap 8 (7-16); Aspartate Amino Transferase < 8 U/L (0-34); BUN/Creatinine Ratio 23 Ratio (12-20); Bilirubin,Total 0.3 mg/dL (0.3-1.2); Blood Urea Nitrogen 16 mg/dL (9-23); Calcium 8.9 mg/dL (8.3-10.6); Calcium (Corrected) 9.1 mg/dL (8.5-10.1); Carbon Dioxide 27.5 mMol/L (20.0-31.0); Chloride 104 mMol/L (98-107); Creatinine (Component) 0.7 mg/dL (0.6-1.3); Estimated Creatinine Clearance 83.1 mL/min (>60); Globulin 2.4 gm/dL (2.3-3.5); Glucose 229 mg/dL (74-106); Magnesium 1.8 mg/dL (1.6-2.6); Osmolality,Calculated 285 (275-295); Phosphorous 3.5 mg/dL (2.4-5.1); Sodium 139 mMol/L (136-145); Total Protein 6.1 gm/dL (5.7-8.2); eGFR > 60 See Note
[2024-05-15] MEDS: INSULIN LISPRO (AdmeLOG) 1 UNIT/0.01 ML UNIT 5 UNIT SC ×2 (07:40→11:59)
[2024-05-15] MEDS: INSULIN LISPRO (AdmeLOG) 1 UNIT/0.01 ML UNIT SC ×2 (07:41→11:58)
[2024-05-15 08:00] VITALS: BP 128/77; PULSE 113; PULSE 91; RESP 17; TEMP 36.6; O2SAT 95
[2024-05-15] MEDS: ASPIRIN EC 81 MG TABEC PO (08:47)
[2024-05-15] MEDS: CLOPIDOGREL BISULFATE 75 MG TABLET PO (08:47)
[2024-05-15] MEDS: INSULIN GLARGINE (Lantus) 5 UNIT/0.05 ML (PER 5 UNITS) 22 UNIT SC (08:48)
[2024-05-15 10:41] VITALS: BMI 25.5
[2024-05-15 12:00] VITALS: BP 136/71; PULSE 107; PULSE 94; RESP 14; TEMP 36.6; O2SAT 95
--- NOTE | 2024-05-15 13:20 | PD.RESPRO ---
Documentation for date of: 05/15/24 Subjective Subjective Interval history: No overnight events. Patient seen and examined at bedside, resting comfortably. Patient showed significant improvement in all symptoms, notes only small decrease in sensation on left side of face. Follow-up echo and PT eval. Continue to manage patient's diabetes. Exam Vital Signs Temp Pulse Resp BP Pulse Ox O2 Del Method 97.8 F 107 H 14 136/71 H 95 Room Air 05/15/24 12:00 05/15/24 12:00 05/15/24 12:05/15/24 12:00 05/15/24 12:05/15/24 12:00 Narrative Exam Gen: Well-developed and well-nourished. HEENT: NCAT, PERRLA, EOMI, MMM, anicteric conjunctivae. CVS: normal S1 and S2. RRR. No M/R/G. Resp: CTA B/L. No rhonchi, rales, crackles or wheezing. Abd: soft, non-tender, non-distended. BS+ in all 4 quadrants. MSK: Good ROM in BUE & BLE. No edema or rash. Neuro: CN II-XII grossly intact. Strength 5/5 in right upper and lower extremities. Alert and oriented x3. Strength 5/5 in left upper and lower extremities. Decreased sensation to light touch on left face. Left-sided ataxia. Psych: appropriate mood and affect. Objective Labs 05/15/24 03:59 05/15/24 03:59 Labs: Laboratory Results - last 24 hr 05/15/24 03:59 WBC 9.2 RBC 4.46 Hgb 11.9 L Hct 37.0 MCV 83 MCH 26.7 MCHC 32.2 RDW Std Deviation 39.0 Plt Count 376 D Neut % (Auto) 46 Lymph % (Auto) 39 [place] % (Auto) 11 Eos % (Auto) 2 Baso % (Auto) 0 Neut # (Auto) 4.3 Lymph # (Auto) 3.6 [place] # (Auto) 1.0 H Eos # (Auto) 0.2 Baso # (Auto) 0.0 Immature Gran # (Auto) 0.09 H Absolute Nucleated RBC 0.00 Immature Gran % 1 H Nucleated RBC % 0 PT 10.9 INR 1.0 Sodium 139 Potassium 4.0 Chloride 104 Carbon Dioxide 27.5 Anion Gap 8 BUN 16 Creatinine 0.7 Estim Creat Clear Calc 83.1 eGFR > 60 BUN/Creatinine Ratio 23 H Glucose 229 H D Calculated Osmolality 285 Calcium 8.9 Corrected Calcium 9.1 Phosphorus 3.5 Magnesium 1.8 Total Bilirubin 0.3 AST < 8 ALT 10 Alkaline Phosphatase 48 Total Protein 6.1 Albumin 3.7 Globulin 2.4 Albumin/Globulin Ratio 1.5 Quality Measures Quality Measures VTE prophylaxis Assessment & Plan Assessment Current Active Medications: Generic Name Dose Route Start Last Admin Trade Name Freq PRN Reason Stop Dose Admin Acetaminophen 650 mg 05/13/24 13:44 05/13/24 15:30 Acetaminophen 325 Mg Tablet PO 06/12/24 13:43 650 mg Q6H PRN Administration Fever >100.4 or pain Aspirin 81 mg 05/14/24 09:00 05/15/24 08:47 Aspirin Ec 81 Mg Tabec PO 06/13/24 08:59 81 mg QDAY GEN Administration Atorvastatin Calcium 80 mg 05/14/24 21:00 05/14/24 20:43 Atorvastatin Calcium 20 Mg Tablet PO 06/13/24 20:59 80 mg HS GEN Administration Clopidogrel Bisulfate 75 mg 05/14/24 09:00 05/15/24 08:47 Clopidogrel Bisulfate 75 Mg Tablet PO 06/13/24 08:59 75 mg QDAY GEN Administration Dextrose 25 ml 05/13/24 13:44 Dextrose 50%-Water Inj 50 Ml Syringe IV 06/12/24 13:43 Q15MIN PRN BG 50-70 responsive npo pt Dextrose 50 ml 05/13/24 13:44 Dextrose 50%-Water Inj 50 Ml Syringe IV 06/12/24 13:43 Q15MIN PRN BG <50 OR BG <70 & pt unresponsive Glucagon 1 mg 05/13/24 13:44 Glucagon Inj 1 Mg Vial IM Q15MIN PRN BG <70, and no IV access Insulin Glargine 22 unit 05/15/24 09:00 05/15/24 08:48 Insulin Glargine (Lantus) 5 Unit/0.05 Ml (Per 5 Units) SC 06/14/24 08:59 22 unit QDAY GEN Administration Insulin Human Lispro 0 unit 05/14/24 07:49 05/15/24 11:58 Insulin Lispro (Admelog) 1 Unit/0.01 Ml Unit SC 06/12/24 20:59 8 unit ACHS GEN Administration Protocol Insulin Human Lispro 5 unit 05/15/24 08:00 05/15/24 11:59 Insulin Lispro (Admelog) 1 Unit/0.01 Ml Unit SC 06/14/24 07:59 5 unit TIDWM GEN Administration Ondansetron HCl 4 mg 05/13/24 08:44 05/13/24 09:40 Ondansetron Inj 2 Mg/Ml Inj 2 Ml IV 06/12/24 08:43 4 mg Q4HR PRN Administration NAUSEA OR VOMITING Plan This 59 y/o F with PMHx significant for fgy-gnslkls-gdboyzegm diabetes presented to the ED from home with chief complaint of left-sided weakness, admitted for stroke workup. 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 On exam patient had a clear left-sided weakness, drift, ataxia, decreased sensation to light touch. Head CT negative, CTA head neck unremarkable. Patient received 81 mg aspirin 100 mg Plavix in the ED. Telemetry neuro consulted, recommended admission and workup for stroke. MRI stroke confirm 9 mm acute right thalamic infarct And 90% stenosis left posterior cerebral artery P2 segment Patient showed significant improvement in symptoms since admission. -LDL 67, triglycerides 134 -Telemetry -Aspirin 81 mg daily -Plavix 75 mg daily and atorvastatin 80 mg at bedtime -Every 4 hour neurochecks -Echo with bubble study pending -PT pending -A1c 10.4 -Neurology consulted, appreciate recommendations # Non-insulin dependent DM, uncontrolled Patient history. A1c 10.4 -ISS -Lantus increased to 22 units units daily -Lispro 5 units 3 times daily with meals -Hypoglycemia protocol ?Diabetic education -Will discontinue glyburide and continue metformin along with Tresiba upon discharge GI prophylaxis: None Diet: Carb consistent Lines: Peripheral IV Code status: Full code Plan of care discussed with senior resident Dr. Esposito PGY?[address] Ly. Pb Frederick MD PGY-1 Attending Provider Attestation/Addendum I attest that I was physically present for the evaluation, physical examination, lab and imaging review of the patient with the residents. I discussed the case with the residents and agree with the findings and plans of care as documented above. At bedside today, patient states she is feeling much better. Negrita Ly MD
--- NOTE | 2024-05-15 13:55 | PC.SS ---
Walkers The diagnosis creates mobility limitation that significantly impairs ability to participate in the patients activities of daily living either in their entirety, or in a reasonable time frame. Also the patient is able to safely use the walker and the patient?s mobility is sufficiently resolved with the use of the walker and cane has been ruled out.
--- NOTE | 2024-05-15 14:38 | ESDS_ITS ---
<Statement entered by Alexis Esposito MD - 05/15/24 15:05> I saw and examined the patient, and I agree with current management stated by Dr Yoly MD,PGY1. Plan of care was discussed with the attending physician and resident physician. Disclaimer: Despite multiple revisions, due to the dictation software being used, the document bellow may not be free of grammatical errors including phonetic/typographic errors. However, this does not deter from our commitment to providing health care in the patient's best interest in mind. Dr. Cate MD, PGY 2 Planned Discharge Date 05/15/24 DS: Providers Provider Date of admission: 05/13/24 10:21 Primary care physician: Dharmesh Rangel PA-C Admitting Provider: Negrita Ly MD Attending Provider on Admission: Negrita Ly MD Consults: 05/13/24 08:44 Consult to Neurology / Tele-Neurology Routine Comment: Consulting Provider: [facility] 05/13/24 13:44 Referral Physical Therapy Routine Comment: Physician Instructions: 05/13/24 13:48 Referral Speech Therapy Routine Comment: 05/13/24 13:52 Consult to Neurology / Tele-Neurology Routine Comment: Consulting Provider: Alfonso Hong 05/14/24 07:57 Referral Registered Dietitian Routine Comment: Referral Registered Dietitian Routine Comment: 05/15/24 09:39 Referral Physical Therapy Routine Comment: Physician Instructions: Attending Provider on DC: Negrita Ly MD Discharging Provider: Pb Frederick MD DS: Diagnosis Problem List Completed Was Problem List Reviewed/Reconciled?: Yes Hospital Course Hospital Course Hospital course: 59 y/o F with PMHx significant for wqe-gfqjrcq-xcsbteuqy diabetes presented to the ED from home with chief complaint of left-sided weakness. Patient first noted weakness in her left arm and leg at night before admission, after waking up the next morning symptoms were unchanged prompting visit to ED. Patient has no history of previous symptoms in the past. Patient notes her left arm, leg, face feels slightly numb. Patient denies headache, chest pain, fever, chills, shortness of breath, nausea, vomiting. Patient received aspirin and loading dose Plavix in the ED. Teleneuro consulted, recommended admission and workup for stroke. MRI confirmed right thalamic infarct. Patient showed significant improvement in motor symptoms over next 2 days. Echo unremarkable, PT eval recommended home health for rehab. Patient A1c found to be 10.4%, patient started on basal bolus insulin with correction. Patient to discharge with insulin treatments. Patient medically cleared and stable for discharge. 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 Esposito PGY?[address] Ly. Pb Frederick MD PGY-1 Time Spent with Patient Time attestation: Total time spent providing and/or coordinating discharge services: Home Health Home Health Referral Orders: 05/15/24 14:14 Home Health Referral Routine Reason For Exam: CVA Home-Bound The patient must either because of illness or injury, need the aid of supportive devices such as crutches, canes, wheelchairs, and walkers; the use of special transportation; or the assistance of another person in order to leave their place of residence; OR have a condition such that leaving his or her home is medically contraindicated. In addition, the patient also meets the following criteria: patient is normally unable to leave the home and leaving home requires considerable taxing effort. Addendum to Home Health Certification Practitioner's Certification: I certify that the patient has been under my care in the hospital and the care of attending physician (see below). We had a zcrq-fk-saqb encounter on (see date below). My clinical findings indicate that the patient is home bound per the above criteria and the Home Health Services noted in these orders are medically necessary. The primary reason for the awbk-pi-kkko encounter is related to the fact that the patient requires home health services. Date Certifying Cxqs-vm-Kjbw Physician Encounter: 05/13/24 Physician's Name who will Assume Oversight for Services: Dharmesh Rangel Physician's Phone No.who will Assume Oversight for Service: HEAD TURBINE OPERATOR - Community Resources: No PT to Evaluate: Yes PT to evaluate and provide a treatmnet plan to increase patient's mobility and strength. Wound Care: No IV Therapy: No RN Safety Evaluation: Yes RN to evaluate and create a plan of care that will produce positive outcomes. Palliative Treatment: No Palliative treatment and evaluate the need for hospice. Home Health Aide - Personal Care: No Home Health Aide to assist with any ADL's. Exam Vital Signs Temp Pulse Resp BP Pulse Ox O2 Del Method 97.8 F 107 H 14 136/71 H 95 Room Air 05/15/24 12:00 05/15/24 12:00 05/15/24 12:00 05/15/24 12:00 05/15/24 12:05/15/24 12:00 Narrative Exam Gen: Well-developed and well-nourished. HEENT: NCAT, PERRLA, EOMI, MMM, anicteric conjunctivae. CVS: normal S1 and S2. RRR. No M/R/G. Resp: CTA B/L. No rhonchi, rales, crackles or wheezing. Abd: soft, non-tender, non-distended. BS+ in all 4 quadrants. MSK: Good ROM in BUE & BLE. No edema or rash. Neuro: CN II-XII grossly intact. Strength 5/5 in right upper and lower extremities. Alert and oriented x3. Strength 5/5 in left upper and lower extremities. Decreased sensation to light touch on left face. Left-sided ataxia. Psych: appropriate mood and affect. Discharge Plan Plan Patient Disposition: Home w/HOME HEALTH Care Plan Goals: You have been started on the following medications: -Aspirin 81 mg daily, for the next 21 days -Plavix 75 mg daily -Atorvastatin 80 mg daily -Tresiba 25 units injection every night Please follow-up with PCP in 1-2 weeks Please follow-up with neurology outpatient Continue working with physical therapy Prescriptions/Referrals Prescriptions/Med Rec: New clopidogrel 75 mg Tablet 75 mg PO QDAY 30 Days Qty: 30 0RF (DME) pen needle, diabetic [Ultra-Thin II Ins Pen Dewitt] 29 gauge x 1/2 needle See Rx Instructions .Route Qty: 100 0RF Rx Instructions: As directed Baqsimi 3 mg/actuation spray,non-aerosol 3 mg intranasal QDAY Qty: 1 0RF atorvastatin 80 mg tablet 80 mg PO QPM Qty: 30 0RF insulin degludec [Tresiba FlexTouch U-100] 100 unit/mL (3 mL) insulin pen 25 unit subcut QPM Qty: 15 4RF aspirin 81 mg tablet,delayed release (DR/EC) 81 mg PO QDAY 21 Days Qty: 21 0RF Continued metformin 1,000 mg Tablet 1,000 mg PO BID Discontinued glyburide 2.5 mg Tablet 5 mg PO BID No Action Steglatro 15 mg tablet 15 mg PO 1XD Referrals: Dharmesh Rangel PA-C [Primary Care Provider] - Patient/Caregiver Discharge Instructions Discharge Activity: as per physical therapy Other Discharge Activity Instructions:: FOLLOW UP WITH DR. HONG IN TWO WEEKS IN HER OFFICE AFTER DISCHARGE [phone] Education Materials: Diabetes and Heart Disease, Long-Term Complications of Diabetes, High Blood Sugar (Hyperglycemia), Diabetes and Kidney Disease, Diabetes Exercise Get Started, Discharge Instructions for Stroke, Discharge Instructions for ..., Discharge Instructions Using ..., Blood Sugar Monitoring and ..., Diabetes Exercise Plan, Diabetes Tracking Your Fitness ..., Diabetes Carbs Fats Protein, Getting Support When You Have Diabetes, Hypoglycemia Steps, Diabetes and High Blood Pressure Print Language: Austrian Stand Alone Forms: Jacquelyn Award Info., Patient Portal Info Letter Discharge Order Discharge Orders: Discharge (Routine); Ordered 05/15/24 Ordered By: Alexis Esposito Quality Discharge Quality Measures stroke Statin ordered >75 y/o:moderate or high intensity dose on DC: n/a Statin ordered <75 y/o: high intensity dose on DC: yes Statin not ordered due to:: not indicated (Statin was ordered) Anticoagulation ordered for A-fib or flutter (current or hx): not indicated Antithrombotic ordered on DC: contraindicated (describe) (Out of window) Attestestation MD Attestation I attest that I was physically present for the evaluation, physical examination, lab and imaging review of the patient with the residents. I discussed the case with the residents and agree with the findings and plans of care as documented above. At bedside today, patient states she is feeling well and does not have any complaints. Her left limb weaknesses have been resolved. She continues to have some numbness on her face and left side but states that it has improved significantly. Echocardiography results were negative for bubble study. Physical therapy recommended home health physical therapy. Discussed with neurology, agreed that patient is stable for discharge on oral medication. We will continue aspirin, Plavix and statin. Recommended continuation of physical therapy, follow-up with PCP and neurology in 1 to 2 weeks. Negrita Ly MD
--- NOTE | 2024-05-15 14:46 | PC.CC ---
pt entered into [employer]
--- NOTE | 2024-05-15 15:37 | PC.SS ---
DRY PLASTERER submitted DME referral on [facility] [place]. Results are pending.
[2024-05-15 16:00] VITALS: BP 129/69; PULSE 93; RESP 16; TEMP 36.4; O2SAT 97
--- NOTE | 2024-05-15 16:09 | PC.SS ---
PAROLE HEARING OFFICER conducted bedside contact with the patient conduct initial assessment and to discuss discharge planning. Patient confirmed demographic information. Patient resides at home with spouse, Skip Mendez . Patient does not utilize any form of DME to assist with ambulation. Patient does not utilize home oxygen. Patient describes the ability to complete ADL?s independently. Patient identified spouse, Skip Mendez; as medical surrogate decision maker. Patient?s PCP is Dharmesh Rangel [facility]. Patient does not participate with dialysis. Patient does not possess any specialty providers. Patient utilizes [facility] for medication services. Plan is for the patient to return home at the time of discharge. Spouse will provide transportation on behalf of the patient. PT recommending walker for the patient. No preferred vendor identified. If home health recommended no preferred agency identified. No further intervention required at this time, adoption social worker will be available to address any further concerns. Next of Kin: Skip Mendez D/C Plan: Home
--- NOTE | 2024-05-15 16:11 | PC.SS ---
DIRECTOR EMERGENCY DEPARTMENT confirmed [facility] will deliver DME today. DIRECTOR EMERGENCY DEPARTMENT updated patient and bedside nurse.
--- NOTE | 2024-05-15 17:01 | PD.NEUROPROG ---
Documentation for date of: 05/15/24 Subjective Subjective Interval history: Patient was seen in telemetry today. Continue to have left sided hemiparesthesias but much improved from admission. Exam - Neurology Vital Signs Temp Pulse Resp BP Pulse Ox O2 Del Method 97.6 F 93 16 129/69 97 Room Air 05/15/24 16:00 05/15/24 16:00 05/15/24 16:00 05/15/24 16:00 05/15/24 16:00 05/15/24 16:00 Narrative Exam GENERAL APPEARANCE: Well hydrated, well-nourished in no acute distress. HEENT: Normocephalic, atraumatic, extraocular movements intact. Pupils: Equal reacting to light and accommodation NECK: Supple, no JVD or bruits. CARDIOVASULAR: Heart: S1, S2 heard, regular without S3-S4 or murmur no rubs or gallops. LUNGS/CHEST: Clear to auscultation bilaterally. No rails, rhonchi, or wheezing. Normal inspection. ABDOMEN: Soft, nontender, with normal bowel sounds. No pulsatile masses. No rebound, rigidity, or guarding. Normal inspection and palpation. EXTREMITIES: Normal inspection and palpation. No edema, clubbing or cyanosis. SKIN: Warm and dry without rashes. Normal inspection. MUSCULOSKELETAL: No cervical, thoracic, lumbar or midline bony tenderness. Normal inspection. NEURO: Alert, awake and oriented x3. Cranial nerves: II through XII grossly intact. Speech and language: Normal with no dysarthria or dysphasia. Motor system: Tone and bulk: Normal: Strength: 5 out of 5 in all 4 extremities; No pronator drift noted. Deep tendon reflexes: 2+ bilaterally symmetrical. Plantar reflex: Downgoing bilaterally. Sensory system: Slightly impaired to all modalities sensation on the left hemibody. Coordination: Intact to ltchzt-uyaz-dbntr and anke-quww-xgqz test bilaterally. No ataxia, no dysmetria, or dysdiadochokinesia noted. No intention tremors noted. Gait: Normal. Toe, heel, tandem walk all are normal. Romberg: Negative. No signs of meningeal irritation noted. PSYCHIATRIC: Normal mood and affect. Objective Labs 05/15/24 03:59 05/15/24 03:59 Labs: Laboratory Results - last 24 hr 05/15/24 03:59 WBC 9.2 RBC 4.46 Hgb 11.9 L Hct 37.0 MCV 83 MCH 26.7 MCHC 32.2 RDW Std Deviation 39.0 Plt Count 376 D Neut % (Auto) 46 Lymph % (Auto) 39 [place] % (Auto) 11 Eos % (Auto) 2 Baso % (Auto) 0 Neut # (Auto) 4.3 Lymph # (Auto) 3.6 [place] # (Auto) 1.0 H Eos # (Auto) 0.2 Baso # (Auto) 0.0 Immature Gran # (Auto) 0.09 H Absolute Nucleated RBC 0.00 Immature Gran % 1 H Nucleated RBC % 0 PT 10.9 INR 1.0 Sodium 139 Potassium 4.0 Chloride 104 Carbon Dioxide 27.5 Anion Gap 8 BUN 16 Creatinine 0.7 Estim Creat Clear Calc 83.1 eGFR > 60 BUN/Creatinine Ratio 23 H Glucose 229 H D Calculated Osmolality 285 Calcium 8.9 Corrected Calcium 9.1 Phosphorus 3.5 Magnesium 1.8 Total Bilirubin 0.3 AST < 8 ALT 10 Alkaline Phosphatase 48 Total Protein 6.1 Albumin 3.7 Globulin 2.4 Albumin/Globulin Ratio 1.5 Assessment & Plan Assessment and plan (1) Acute CVA (cerebrovascular accident): Status: Acute Assessment and plan: MRI brain showed right thalamic infarct continue with aspirin 81 mg, Plavix 75 mg and statin Keep the diabetes under control Patient is stable for discharge home with home health physical therapy
--- NOTE | 2024-05-16 08:27 | PC.CM ---
Addendum entered by Shayy Veliz RN 05/17/24 11:27: [facility] will open patient on 05/20. Addendum entered by Manuela Cho RN 05/16/24 09:03: [facility] accepted the pt. Booked [facility]. Pending insurance auth and start of care date. Original Note: No preference of HH agency per SS notes. HH referral sent on [facility]. Awaiting responses. Pending Start of care date.
== END 2024-05-15 16:47 | disposition home health service (06) | DRG 45 ==
LOC: SERX 10:27 → SERHOLD 10:31 → S2NX 16:24
PROVIDERS: Admitting Provider Student in an Organized Health Care Education/Training Program; Emergency Provider Emergency Medicine; PCP Physician Assistant; Visit Provider Student in an Organized Health Care Education/Training Program
DX: I63.50 Cerebral infarction due to unspecified occlusion or stenosis of unspecified cerebral artery (principal); R29.702 NIHSS score 2; G81.94 Hemiplegia, unspecified affecting left nondominant side; R27.0 Ataxia, unspecified; I66.22 Occlusion and stenosis of left posterior cerebral artery; E11.65 Type 2 diabetes mellitus with hyperglycemia; R29.810 Facial weakness; Z87.442 Personal history of urinary calculi; Z79.82 Long term (current) use of aspirin; Z79.02 Long term (current) use of antithrombotics/antiplatelets; Z79.84 Long term (current) use of oral hypoglycemic drugs; Z79.4 Long term (current) use of insulin; Z79.899 Other long term (current) drug therapy
CPT/HCPCS: 36415; 70450; 70496; 70498; 70544; 80053; 80061; 80307; 80320; 81001; 83036; 83735; 84100; 84443; 84484; 84703; 85025; 85610; 85730; 87086; 87811; 92610; 93005; 93306; 96374; 97162; 99285; A4649; J1815; J2405; J3475; J7030; Q9967; A9270; G0480